=== PATIENT | female | born 1985 | race African-American/Black ===

== ENCOUNTER 2018-01-17 08:15 | Emergency (ER) | payer OTHER ==
[~2018-01-17] VITALS: Ht 149.9 cm; Wt 122.5 kg
[~2018-01-17 08:15] MED LIST: AMOXICILLIN875 MG PO; NOHOMEMEDICATIONS; PROMETHAZINE-C120 ML PO
[2018-01-17] MEDS ORDERED: FLEXERIL PO (08:31)
== END 2018-01-17 08:52 | disposition home or self-care (01) ==
LOC: ER 08:15
DX: M54.6 Pain in thoracic spine (principal); V49.49XA Driver injured in collision with other motor vehicles in traffic accident, initial encounter; Y93.I9 Activity, other involving external motion; Y92.89 Other specified places as the place of occurrence of the external cause; Y99.8 Other external cause status